=== PATIENT | female | born 1955 | race Caucasian/White ===

== ENCOUNTER 2020-09-14 08:39 | Outpatient (CLI) | payer OTHER, SELFPAY ==
--- NOTE | ~2020-09-14 | MM_ITS ---
EXAMINATION: MM screening [facility] BI w lesvia HISTORY: Screening mammogram TECHNIQUE: Craniocaudal and mediolateral oblique 3-D tomosynthesis images were obtained and synthetic 2-D images were generated. CAD analysis was submitted and interpreted. COMPARISON: 11/22/2018, 11/19/2017, 11/16/2016 bilateral digital screening mammogram examinations BREAST PARENCHYMAL COMPOSITION: There are scattered areas of fibroglandular density. FINDINGS: Scattered bilateral benign calcifications. Stable benign left axillary tail lymph nodes. Th ere is no evidence of suspicious mass, calcification, or architectural distortion to suggest malignan cy in either breast. There has been no suspicious interval change. IMPRESSION: 1. No mammographic evidence of malignancy. 2. Recommend routine screening mammography in one year. BI-RADS Category 2: Benign finding(s). Reviewed, dictated and finalized at location A.
--- NOTE | ~2020-09-14 | DEXA_ITS ---
Bone Density Report Name: Xochitl Rahman Age: 64 Sex: Female Ethnicity: White Date of : 1955 Indication: monitoring treatment; height loss; hysterectomy; Referring Provider: ROSA, DEANN Study: Bone densitometry was performed. Exam Date: September 14, 2020 Accession number: [id number] Bone Density: Region BMD T-score Z-score Classification AP Spine (L1, L2, L3) 1.126 1.0 2.5 Normal Femoral Neck (Left) 0.677 -1.5 -0.1 Osteopenia Total Hip (Left) 1.093 1.2 2.3 Normal Total Hip Bilateral Avg 1.079 1.1 2.2 Normal Femoral Neck (Right) 0.815 -0.3 1.1 Normal Total Hip (Right) 1.064 1.0 2.1 Normal World Health Organization criteria for BMD impression classify patients as: Normal (T-score at or above -1.0), Osteopenia (T-score between -1.0 and -2.5), or Osteoporosis (T-score at or below -2.5). 10-year Fracture Risk: FRAX not reported because: Treated for osteoporosis Previous Exams: Region Exam Age BMD T-score BMD Change BMD Change Date g/cm2 vs Baseline vs Previous AP Spine(L1, L2, L3) 09/14/2020 64 1.126 1.0 0.069(6.6%)# 0.094(9.1%)# 11/19/2017 61 1.032 0.1 -0.025(-2.3%)# -0.015(-1.4%)# 11/12/2014 58 1.047 0.3 -0.010(-0.9%)# -0.010(-0.9%)# 10/09/2011 55 1.057 0.4 Total Hip(Left) 09/14/2020 64 1.093 1.2 0.045(4.3%)# 0.177(19.3%)# 11/19/2017 61 0.917 -0.2 -0.131(-12.5%) -0.160(-14.9%) 11/12/2014 58 1.077 1.1 0.029(2.8%)# 0.029(2.8%)# 10/09/2011 55 1.048 0.9 Total Hip(Right) 09/14/2020 64 1.064 1.0 0.021(2.0%)# 0.092(9.4%)# 11/19/2017 61 0.972 0.2 -0.071(-6.8%)* -0.103(-9.6%)# 11/12/2014 58 1.075 1.1 0.032(3.0%)# 0.032(3.0%)# 10/09/2011 55 1.043 0.8 *Denotes significance at 95% confidence level, LSC for AP Spine = 0.022 g/cm2, LSC for Total Hip = 0.027 g/cm2 Clinical Information Provided by Patient: Is being treated for osteoporosis Has used the following medications: Protelos (i.e. strontium ranelate), Vitamin D, Calcium Has the following medical conditions: Hysterectomy Patient maximum height was 66 Menopause Age: 52 No regular weight bearing exercise Drinks caffeinated beverages Onset of menses at age 13 Number of children 2 Impression: The patient has low bone mass, based on the Left Femoral Neck T-score. No significant bone loss was observed. Discussion: PATIENT UNDER TREATMENT WITH NO SIGNIFICANT BMD LOSS SINCE LAST EXAM. In an
== END 2020-09-14 08:40 | disposition home or self-care (01) ==
LOC: ANHIMG 08:46
PROVIDERS: PCP Family Medicine Adolescent Medicine; Visit Provider Nurse Practitioner
DX: Z12.31 Encounter for screening mammogram for malignant neoplasm of breast (principal); M81.0 Age-related osteoporosis without current pathological fracture; M85.852 Other specified disorders of bone density and structure, left thigh
CPT/HCPCS: 77063; 77067; 77080

== ENCOUNTER 2020-10-07 01:01 | Day surgery (SDC) | payer OTHER, SELFPAY ==
[2020-09-22 08:11] VITALS: BMI 53.7
[2020-10-07 07:04] VITALS: BP 180/94; PULSE 78; RESP 22; TEMP 35.9; O2SAT 96; BMI 52.8
[2020-10-07] MEDS: LACTATED RINGERS 1,000 ML 150 ML IV CONT (07:28)
--- NOTE | 2020-10-07 08:09 | WPDANESEPPF ---
Anes - Initial Pre Proc Eval Procedure: Operation Date: 10/07/20 08:30 Proposed Procedures p Colonoscopy - Trae Mills DO Date/Time: 10/07/20 08:09 Surgeon: Trae Mills DO Pre Op Diagnosis: Hx of colon polyps , neoplasm screening Patient Data Age: 64 Gender: F Height: 1.65 m Weight: 144 kg Last Vital Signs Temp 96.6 F L 10/07/20 07:04 Pulse 78 10/07/20 07:04 Resp 22 H 10/07/20 07:04 BP 180/94 H 10/07/20 07:04 Pulse Ox 96 10/07/20 07:04 Allergies Allergy/AdvReac Type Severity Reaction Status Date / Time aspirin AdvReac Intermediate ITCHEY Verified 09/22/20 08:13 WATERY EYES, SINUS CONGESTION Home Medications Medication Instructions Recorded Confirmed Type Calcium 600 + D(3) 2 tab-cap PO DAILY 09/22/20 09/22/20 History Probiotic 1 dose PO DAILY 09/22/20 09/22/20 History aspirin [Aspirin Low Dose] 81 mg PO DAILY 09/22/20 10/07/20 History cholecalciferol (vitamin D3) 125 mcg PO DAILY 09/22/20 09/22/20 History [Vitamin D3] denosumab [Prolia] 60 mg SUBCUT Q6M 09/22/20 10/07/20 History fiber 4 cap PO DAILY 09/22/20 10/07/20 History meloxicam 15 mg PO DAILY 09/22/20 10/07/20 History fw-vep-dxzbq-calcium carb-K1 1 tablet PO DAILY 09/22/20 09/22/20 History [Women's 50 Plus Daily Formula] vitamin A-vitamin C-vit E-min 1 tablet PO DAILY 09/22/20 09/22/20 History [Ocuvite] Patient hx anesthesia problems: none Family hx anesthesia problems: none PMFSH Past Medical History Medical History (Updated 10/07/20 @ 08:08 by Gerald Pappas MD) Pre-diabetes was on Metformin; now diet controlled Social History Social History Smoking status: Never smoker Alcohol intake: never Substance use: never Substance use type: does not use Living arrangements: with family Spiritual care concerns: No Anes - Eval Final PreProcedure Day of Procedure 10/07/20 08:09 Patient weight: super morbidly obese Heart: regular rate and rhythm Lungs: clear to auscultation Airway: Mallampati scale class II Neurological: alert and oriented Last oral intake: >/= 8 hours ASA classification: III Emergent: no Anesthetic plan: proceed Anesthesia type and monitoring: general GIVS and standard monitoring Informed Consent: The patient's anesthetic plan and its attendant risks and benefits were discussed with the patient/family/POA. Questions were solicited and answers provided to the satisfaction of the patient/family/POA.
--- NOTE | 2020-10-07 08:30 | WPDGICN ---
GI Consult Note Consult date/time: 10/07/20 08:30 HPI: Reason for visit colonoscopy. This very pleasant lady seen in consultation at the request of the primary physician. Impression: Screening and surveillance colonoscopy. The patient has a history adenomatous colon polyps and a family history of colon cancer. Obesity. Osteoporosis. Vitamin-D deficiency. Pre diabetes. Recommendation: Colonoscopy. History: Very pleasant lady's here for screening and surveillance colonoscopy. She has a history of multiple adenomatous colon polyps and family history of colorectal cancer. GI review systems negative. Physical examination: General: very pleasant patient in no acute distress. HEENT: Head was normocephalic sclerae is clear mouth without masses neck was supple. Heart: Rate rhythm regular without S3 or S4. Lungs: CTA. Abdomen: Soft with no guarding or rigidity. Bowel sounds were active. Neurologic: Cranial nerves 2 through 12 intact. No focal defects. No clonus. Musculoskeletal system: Revealed no joint tenderness or swelling no muscle atrophy. Extremities: Reveal no significant edema. Skin: Warm and dry with normal turgor. Mental status: intact. Patient is alert and oriented. Review of Systems Review of Systems: All systems reviewed & are unremarkable except as noted in HPI and below PMFSH Past Medical History Medical History (Updated 10/07/20 @ 08:08 by Gerald Pappas MD) Pre-diabetes was on Metformin; now diet controlled Social History Social History Smoking status: Never smoker Alcohol intake: never Substance use: never Substance use type: does not use Living arrangements: with family Spiritual care concerns: No Meds Home Medications and Allergies Home Medications Medication Instructions Recorded Confirmed Type Calcium 600 + D(3) 2 tab-cap PO DAILY 09/22/20 09/22/20 History Probiotic 1 dose PO DAILY 09/22/20 09/22/20 History aspirin [Aspirin Low Dose] 81 mg PO DAILY 09/22/20 10/07/20 History cholecalciferol (vitamin D3) 125 mcg PO DAILY 09/22/20 09/22/20 History [Vitamin D3] denosumab [Prolia] 60 mg SUBCUT Q6M 09/22/20 10/07/20 History fiber 4 cap PO DAILY 09/22/20 10/07/20 History meloxicam 15 mg PO DAILY 09/22/20 10/07/20 History pi-nff-lunci-calcium carb-K1 1 tablet PO DAILY 09/22/20 09/22/20 History [Women's 50 Plus Daily Formula] vitamin A-vitamin C-vit E-min 1 tablet PO DAILY 09/22/20 09/22/20 History [Ocuvite] Allergies Allergy/AdvReac Type Severity Reaction Status Date / Time aspirin AdvReac Intermediate ITCHEY Verified 09/22/20 08:13 WATERY EYES, SINUS CONGESTION Vital Signs Vital Signs - 24 hr 10/07/20 07:04 Temperature 35.9 C L Pulse Rate 78 Respiratory Rate 22 H Blood Pressure 180/94 H Pulse Oximetry 96
[2020-10-07 08:51] VITALS: BP 126/75; PULSE 61; RESP 25; O2SAT 99
[2020-10-07 09:01] VITALS: BP 133/78; PULSE 59; RESP 25; O2SAT 99
[2020-10-07 09:11] VITALS: BP 138/72; PULSE 57; RESP 19; O2SAT 96
== END 2020-10-07 09:31 | disposition home or self-care (01) ==
PROVIDERS: PCP Family Medicine Adolescent Medicine; Visit Provider Internal Medicine Gastroenterology
PROC: 0DJD8ZZ Inspection of Lower Intestinal Tract, Via Natural or Artificial Opening Endoscopic (ICD-10-PCS; CPT 45378; principal; 2020-10-07 08:30)
DX: Z12.11 Encounter for screening for malignant neoplasm of colon (principal); D17.5 Benign lipomatous neoplasm of intra-abdominal organs; K57.30 Diverticulosis of large intestine without perforation or abscess without bleeding; K62.1 Rectal polyp; Z80.0 Family history of malignant neoplasm of digestive organs; R73.03 Prediabetes; M81.0 Age-related osteoporosis without current pathological fracture; E55.9 Vitamin D deficiency, unspecified; E66.01 Morbid (severe) obesity due to excess calories; Z68.43 Body mass index [BMI] 50.0-59.9, adult; Z79.82 Long term (current) use of aspirin
CPT/HCPCS: 45380; 88304; 88305; J2704; J7120

== ENCOUNTER 2021-11-15 07:45 | Outpatient (CLI) | payer OTHER, SELFPAY ==
--- NOTE | ~2021-11-15 | MM_ITS ---
EXAMINATION: MM screening [facility] BI w lesvia HISTORY: Screening mammogram, family history of breast cancer in her sister. TECHNIQUE: Craniocaudal and mediolateral oblique 3-D tomosynthesis images were obtained and synthetic 2-D images were generated. CAD analysis was submitted and interpreted. COMPARISON: 09/14/2020, 11/22/2018, 11/19/2017 BREAST PARENCHYMAL COMPOSITION: There are scattered areas of fibroglandular density. FINDINGS: Scattered benign-appearing calcifications are present. There is no suspicious mass, calcifi cation, or architectural distortion to suggest malignancy in either breast. There has been no suspici ous interval change. IMPRESSION: 1. No mammographic evidence of malignancy. 2. Recommend routine screening mammography in one year. BI-RADS Category 2: Benign finding(s). Reviewed, dictated and finalized at location A.
== END 2021-11-15 07:46 | disposition home or self-care (01) ==
PROVIDERS: PCP Family Medicine Adolescent Medicine; Visit Provider Nurse Practitioner
DX: Z12.31 Encounter for screening mammogram for malignant neoplasm of breast (principal)
CPT/HCPCS: 77063; 77067

== ENCOUNTER 2023-02-09 08:45 | Outpatient (CLI) | payer MEDICARE, OTHER, SELFPAY ==
--- NOTE | ~2023-02-09 | MM_ITS ---
EXAMINATION: MM screening [facility] BI w lesvia HISTORY: Screening mammogram, family history of breast cancer in her sister. TECHNIQUE: Craniocaudal and mediolateral oblique 3-D tomosynthesis images were obtained and synthetic 2-D images were generated. CAD analysis was submitted and interpreted. COMPARISON: 11/15/2021, 09/14/2020, 11/22/2018 BREAST PARENCHYMAL COMPOSITION: There are scattered areas of fibroglandular density. FINDINGS: Scattered benign-appearing calcifications are present. No suspicious mass, calcification, o r architectural distortion are identified in either breast to suggest malignancy. There has been no s uspicious interval change. IMPRESSION: 1. No mammographic evidence of malignancy. 2. Recommend routine screening mammography in one year. BI-RADS Category 2: Benign finding(s). Reviewed, dictated and finalized at location A.
== END 2023-02-09 08:46 | disposition home or self-care (01) ==
PROVIDERS: PCP Family Medicine Adolescent Medicine; Visit Provider Nurse Practitioner
DX: Z12.31 Encounter for screening mammogram for malignant neoplasm of breast (principal)
CPT/HCPCS: 77063; 77067

== ENCOUNTER 2023-07-20 08:04 | Outpatient (CLI) | payer MEDICARE, OTHER, SELFPAY ==
--- NOTE | ~2023-07-20 | DEXA_ITS ---
Bone Density Report Name: ELROY STATON Age: 67 Sex: Female Ethnicity: White Date of : 1955 Indication: postmenopausal; screening for osteoporosis; height loss; hysterectomy; Referring Provider: ROSA, DEANN Study: Bone densitometry was performed. Exam Date: July 20, 2023 Accession number: [id number] Bone Density: Region BMD T-score Z-score Classification AP Spine(L1-L4) 1.194 1.3 3.1 Normal Femoral Neck (Left) 0.721 -1.1 0.4 Osteopenia Total Hip (Left) 1.056 0.9 2.2 Normal Femoral Neck (Right) 0.814 -0.3 1.2 Normal Total Hip (Right) 1.137 1.6 2.8 Normal Total Hip Mean 1.096 1.3 2.5 Normal World Health Organization criteria for BMD impression classify patients as: Normal (T-score at or above -1.0), Osteopenia (T-score between -1.0 and -2.5), or Osteoporosis (T-score at or below -2.5). 10-year Fracture Risk(1): Major Osteoporotic Fracture 6.8% Hip Fracture 0.5% Reported Risk Factors: [place] (), Neck BMD=0.721, BMI=47.3 Input outside FRAX(R) limits. Adjusted to:Ulahcp=455 kg (1) FRAX(R) Version 3.08. Fracture probability calculated for an untreated patient. Fracture probability may be lower if the patient has received treatment. Previous Exams: Region Exam Age BMD T-score BMD Change BMD Change Date g/cm2 vs Baseline vs Previous AP Spine (L1-L4) 07/20/2023 67 1.194 1.3 0.135 (12.8%)# 0.135 (12.7%)# 11/19/2017 61 1.059 0.1 0.000 (0.0%)# -0.003 (-0.3%) 11/12/2014 58 1.061 0.1 0.003 (0.3%)# 0.003 (0.3%)# 10/09/2011 55 1.058 0.1 Total Hip(Left) 07/20/2023 67 1.056 0.9 0.008 (0.7%)# -0.038 (-3.4%) 09/14/2020 64 1.093 1.2 0.045 (4.3%)# 0.177 (19.3%)# 11/19/2017 61 0.917 -0.2 -0.131 (-12.5% -0.160 (-14.9% 11/12/2014 58 1.077 1.1 0.029 (2.8%)# 0.029 (2.8%)# 10/09/2011 55 1.048 0.9 Total Hip(Right) 07/20/2023 67 1.137 1.6 0.094 (9.0%)# 0.073 (6.9%)* 09/14/2020 64 1.064 1.0 0.021 (2.0%)# 0.092 (9.4%)# 11/19/2017 61 0.972 0.2 -0.071 (-6.8%) -0.103 (-9.6%) 11/12/2014 58 1.075 1.1 0.032 (3.0%)# 0.032 (3.0%)# 10/09/2011 55 1.043 0.8 *Denotes significance at 95% confidence level, LSC for AP Spine = 0.022 g/cm2, LSC for Total Hip = 0.027 g/cm2 # Denotes dissimilar scan types or analysis methods Clinical Information Provided by Patient: Has used the following medications: Vitamin D, Calcium Has the following medical conditions: Hysterectomy Pa
== END 2023-07-20 08:05 | disposition home or self-care (01) ==
LOC: ANHIMG 08:07
PROVIDERS: PCP Family Medicine Adolescent Medicine; Visit Provider Nurse Practitioner
DX: M85.89 Other specified disorders of bone density and structure, multiple sites (principal); Z78.0 Asymptomatic menopausal state
CPT/HCPCS: 77080

== ENCOUNTER 2024-03-12 08:35 | Outpatient (CLI) | payer MEDICARE, OTHER, SELFPAY ==
--- NOTE | ~2024-03-12 | MM_ITS ---
EXAMINATION: MM screening [facility] BI w lesvia HISTORY: Screening TECHNIQUE: Craniocaudal and mediolateral oblique 3-D tomosynthesis images were obtained and synthetic 2-D images were generated. CAD analysis was submitted and interpreted. COMPARISON: Comparison to multiple prior studies sequentially, with oldest reviewed study dated 11/16. BREAST PARENCHYMAL COMPOSITION: Not dense: There are scattered areas of fibroglandular density. FINDINGS: There is no evidence of suspicious mass, calcification, or architectural distortion to sugg est malignancy in either breast. There has been no suspicious interval change. IMPRESSION: 1. No mammographic evidence of malignancy. 2. Recommend routine screening mammography in one year. BI-RADS Category 1: Negative Reviewed, dictated and finalized at location B. CASE MGR
== END 2024-03-12 08:36 | disposition home or self-care (01) ==
PROVIDERS: PCP Family Medicine Adolescent Medicine; Visit Provider Nurse Practitioner
DX: Z12.31 Encounter for screening mammogram for malignant neoplasm of breast (principal)
CPT/HCPCS: 77063; 77067

== ENCOUNTER 2025-03-17 07:34 | Outpatient (CLI) | payer MEDICARE, OTHER, SELFPAY ==
--- NOTE | ~2025-03-17 | MM_ITS ---
EXAMINATION: MM screening [facility] BI w lesvia HISTORY: Screening. TECHNIQUE: Craniocaudal and mediolateral oblique 3-D tomosynthesis images were obtained and synthetic 2-D images were generated. CAD analysis was submitted and interpreted. COMPARISON: 2023, 2022, and 2021. BREAST PARENCHYMAL COMPOSITION: Not Dense: There are scattered areas of fibroglandular FINDINGS: No suspicious masses are seen. There are no suspicious calcifications. No unexplained architectural distortion is seen. There are no skin or nipple abnormalities identified. There is no adenopathy seen on the images submitted. IMPRESSION: No mammographic evidence to suggest malignancy is seen. The patient may return to screening mammography as per ACR guidelines. BI-RADS 1 - Negative. Reviewed, dictated and finalized at location C. IC AFFAIRS DIRECTOR
== END 2025-03-17 07:35 | disposition home or self-care (01) ==
PROVIDERS: PCP Family Medicine Adolescent Medicine; Visit Provider Nurse Practitioner
DX: Z12.31 Encounter for screening mammogram for malignant neoplasm of breast (principal)
CPT/HCPCS: 77063; 77067

== ENCOUNTER 2025-04-03 07:30 | Emergency (ER) | payer MEDICARE, OTHER, SELFPAY ==
[2025-04-03 07:34] VITALS: BP 160/92; PULSE 63; RESP 18; TEMP 36.6; O2SAT 99
--- NOTE | 2025-04-03 07:45 | ED.WOUNDLAC ---
HPI - Wound/Laceration General Chief Complaint: Wound/Laceration Stated Complaint: finger lac Time Seen by Provider: 04/03/25 07:31 History of Present Illness HPI narrative: Patient is a 69-year-old female who presents ER with laceration to the left 2nd digit. Dorsal aspect at the PIP. She was cutting up some primary the bones to make soup when she cut her own finger with a knife. Tetanus not up-to-date. No numbness or tingling. Bleeding now controlled. Has normal extension and flexion of the finger. No numbness or tingling. Related Data Home Medications ?Medication ?Instructions ?Recorded ?Confirmed ?Last Taken ?Type Calcium 600 + D(3) 2 tab-cap PO DAILY 09/22/20 02/17/25 10/04/20 History cholecalciferol (vitamin D3) 125 125 mcg PO DAILY 09/22/20 02/17/25 10/04/20 History mcg (5,000 unit) tablet (Vitamin D3) sempbhho-lca-lixpl ac 400 1 tablet PO DAILY 09/22/20 02/17/25 10/04/20 History mcg-calcium carb 500 mg-vit K1 20 mcg tablet (Women's 50 Plus Daily Formula) vitamin A-vitamin C-vit E-min 1 tablet PO DAILY 11/15/21 02/17/25 Unknown History tablet ursodiol 300 mg capsule 300 mg PO BID 12/12/23 02/17/25 Unknown History vitamin B12 500 mcg-folic acid 400 1 tablet PO DAILY 12/12/23 02/17/25 Unknown History mcg tablet Allergies Allergy/AdvReac Type Severity Reaction Status Date / Time aspirin AdvReac Intermediate ITCHEY Verified 04/03/25 07:38 WATERY EYES, SINUS CONGESTION Review of Systems Constitutional: Constitutional: Reports no additional constitutional complaints Musculoskeletal: Musculoskeletal: Reports no additional musculoskeletal complaints Integumentary/Breasts: Skin/Breast: Reports system reviewed and no additional complaints, except as docu Neurologic: Reports system reviewed and no additional complaints, except as documented PMFSH Past Medical History Medical History (Updated 04/03/25 @ 08:46 by Jose Alejandro Bruner MD) Pre-diabetes was on Metformin; now diet controlled Surgical History Surgical History (Updated 02/17/25 @ 08:01 by Sean Das MD) History of total right knee replacement (11/2024) H/O: hysterectomy [address] Weber Family History Family History Grandparent Acute myocardial infarction Sibling Breast cancer Depression Sibling Breast cancer Depression Hypertension Other Carcinoma of colon Father Hypertension Other Arthritis Colon polyp Social History Social History Smoking status: Never smoker Second hand tobacco smoke exposure: No Alcohol intake: never Substance use: never Substance use type: does not use Lack of Transportation: No Lack of Food: Never True Current Housing: I Have Housing Concerned About Future Housing: No Difficulty Paying Gas/Electric Bills: No Difficulty Paying for Meds: No Currently Unemployed: No Education: High School Diploma/GED Difficulty w/ Childcare or Family Care: No Living arrangements: with family Occupation/Education: retired Gender identity (if verbalized by the patient): Female Spiritual care concerns: No Agree to blood products: Yes Exam Narrative: GENERAL: Well-appearing, well-nourished, and in no acute distress. HEAD: Normocephalic, atraumatic. ENT: Mucous membranes moist. EXTREMITIES: Normal range of motion. Brisk capillary refill. SKIN: Warm, dry, 1.5 cm laceration to the dorsum of the 2nd digit of the left hand without any bony involvement when viewed in a bloodless field. NEURO: No numbness to the affected extremity. Alert and oriented x3. PSYCH: Normal mood and affect. Course Course Emergency Course: Educated on suture/wound care. Discharge home. Vital Signs Vital signs: Vital Signs Temperature 97.9 F 04/03/25 07:34 Pulse Rate 63 04/03/25 07:34 Respiratory Rate 18 04/03/25 07:34 Blood Pressure 160/92 H 04/03/25 07:34 Pulse Oximetry 99 04/03/25 07:34 Oxygen Delivery Room Air 04/03/25 07:34 Temperature 97.9 F 04/03/25 07:34 Pulse Rate 63 04/03/25 07:34 Respiratory Rate 18 04/03/25 07:34 Blood Pressure 160/92 H 04/03/25 07:34 Pulse Oximetry 99 04/03/25 07:34 Oxygen Delivery Room Air 04/03/25 07:34 Procedures Laceration Laceration 1: Date: 04/03/25 Time: 08:45 Site: other (2nd digit) Side (If applicable): left Size (cm): 1.5 Description: linear and flap Depth: simple, single layer Local Anesthetic: lidocaine 1% Amount of anesthesia used (mL): 1.5 Pre-repair: wound explored, irrigated extensively and deep structures intact ====== Skin Level ====== Skin layer closed with: nylon Size (cm): 5-0 Number of sutures: 4 Technique: simple, interrupted ====== Subcutaneous Layer ====== ====== Muscle Layer ====== ====== Tendon Layer ====== Dressing: bandaid with bacitracin MDM Differential Diagnosis Differential Diagnosis: Bone injury, nerve injury, laceration, retained foreign body, tetanus exposure Discharge Plan Discharge Clinical Impression: Finger laceration Patient Disposition: Home Condition: Stable Instructions: Care For Your Stitches (ED), Laceration (ED) Additional Instructions: Remove her sutures on 04/17/2025. Return the ER if your fingers red and hot, the wound is draining pus, or you have additional concerns. Patient Language: Upper Sorbian Prescriptions: No Action vitamin T32-dmard acid 500-400 mcg tablet 1 tablet PO DAILY Rx Instructions: administer with a meal ursodiol 300 mg capsule 300 mg PO BID vitamin A-vitamin C-vit E-min Tablet 1 tablet PO DAILY ibandronate 150 mg tablet 150 mg PO MONTHLY Qty: 3 3RF cholecalciferol (vitamin D3) [Vitamin D3] 125 mcg (5,000 unit) Tablet 125 mcg PO DAILY Women's 50 Plus Daily Formula 400 mcg-500 mg calcium-20 mcg Tablet 1 tablet PO DAILY Calcium 600 + D(3) 2 tab-cap PO DAILY furosemide 20 mg tablet 20 mg PO QAM PRN (Reason: edema) Qty: 90 1RF montelukast 10 mg tablet 10 mg PO DAILY Qty: 90 2RF tramadol 50 mg tablet See Rx Instructions PO QID PRN (Reason: pain) Qty: 40 2RF Rx Instructions: Take 1 or 2 tablets orally four times daily PRN; Jubbonti 60 mg/mL syringe 60 mg subcut [id number] Qty: 1 1RF lisinopril 40 mg tablet 40 mg PO DAILY Qty: 30 5RF celecoxib 200 mg capsule 200 mg PO DAILY Qty: 90 2RF pantoprazole 40 mg tablet,delayed release (DR/EC) 40 mg PO QAM Qty: 90 2RF Follow-up/Referrals: Sean Das MD [Primary Care Provider, Family Practice] - 2 Weeks
[2025-04-03] MEDS: TETANUS,DIPHTHERIA,AC PERTUSSIS ADULT (0.5 ML) BOOSTRIX IM (08:20)
[2025-04-03] MEDS: LIDOCAINE 1% LOCAL INJ 10 ML VIAL INFILTRATE (08:21)
--- OUTSIDE RECORDS SUMMARY | 2025-04-03 08:54 | XMS_ITS | Clinical Summary ---
Author Organization [facility] Address [address], [address] [address] Phone Care Team Providers Care Insurance Verification Rep Name Role Phone Sean Das MD Primary Care Provider + Allergies Active Allergy Reactions Criticality Noted Date Comments Aspirin Other (see Comments) 08/16/2020 Sneezes a lot Medications Calcium Carbonate (CALCIUM 600 PO) Take by mouth. Active Cholecalciferol (VITAMIN D PO) Take by mouth. Active Multiple Vitamins-Mineral s (OCUVITE PO) Take by mouth. Active aspirin EC 81 MG Tablet Delayed Response Take 81 mg by mouth daily. Active meloxicam (MOBIC) 15 MG Tablet Take 15 mg by mouth daily. Active Psyllium (METAMUCIL PO) Take by mouth. Active Active Problems No known active problems Immunizations Immunization Administration Dates Next Due Covid-19, Mrna, Lnp-s, PF, 5 0 mcg/0.25 mL dose (Moderna) 03/23/2021 Covid-19, Mrna, Lnp-s, Pf, 30 Mcg/0.3 Ml Dose (P fizer) 06/07/2020,05/15/2020 Family History Medical History Relation Name Comments Cancer Mother lung Cancer Paternal Aunt colon Cancer Sister breast Relation Name Status Comments Father Mother Paternal Aunt Sister Social History Tobacco Use Types Packs/Day Years Used Date Smoking Tobacco: Former Cigarettes 0 Q uit: 09/21/1971 Smokeless Tobacco: Never Tobacco Cessation:Counseling Given: No Comments:one cigarette a day for a few years Alcohol Use Standard Drinks/Week Comments No 0 (1 standard drink = 0.6 oz pur e alcohol) Sexually Active Control Partners Comments Yes Comments No Sex and Gender Information Value Date Recorded Sex Assigned at Not on file Legal Sex Female 11:17 PM CDT Gender Identity Not on file Sexual Orientation Not on file Occupation Industry Job Start Date Job End Date Retired [employer] Not on file Not on file Not on file Last Filed Vital Signs Vital Sign Reading Time Taken Comments Blood Pressure 148/76 08/16/2020 9:03 AM CDT Pulse 70 08/16/2020 9:03 AM CDT Temperature 36.7 C (98 F) 08/16/2020 9:03 AM CDT Respiratory Rate 20 08/16/2020 9:03 AM CDT Oxygen Saturation 98% 08/16/2020 9:03 AM CDT Inhaled Oxygen Concentration - - Weight 146.5 kg (323 lb) 08/16/2020 9:03 AM CDT Height 165.1 cm (5' 5) 08/16/2020 9:03 AM CDT Body Mass Index 53.75 08/16/2020 9:03 AM CDT Plan of Treatment Health Maintenance Due Date Last Done Comments Hepatitis C Virus (HCV) Screening 1955 TdaP Immunization 1955 Cologuard 2002 Immunochemical Fecal Occult Blood 2002 Pneumococcal Immunization (5 0+ years) (1 of 1 - PCV) 12/23/2007 Zoster Immunization (1 of 2) 12/23/2007 Influenza Immunization (#1) 2024 SARS-COV-2 Immunization ( season) 2024 03/23/2021, 06/07/2020, 05/15/2020 Colonoscopy 10/07/2025 10/07/2020, 09/25/2017 Colorectal Cancer Screening 10/07/2025 Respiratory Syncytial Virus (RSV) Immunization (Adult) (1 - 1-dose 75+ series) 2032 Hepatitis B Immunization Aged Out No longer eligible based on patient's age to complete this topic Human Papillomavirus (HPV) Immunization Aged Out No longer eligible b ased on patient's age to complete this topic Meningococcal Immunization (ACWY) Aged Out No longer eligible b ased on patient's age to complete this topic Rotavirus Immunization Aged Out No lo nger eligible based on patient's age to complete this topic Procedures Procedure Name Priority Date/Time Associated Diagnosis Comments COLONOSCOPY Routine 10/07/2020 from Last 3 Months or Most Recently Relevant to Health Maintenance Results * HM COLONOSCOPY (10/07/2020) Trae Mills DO PROCEDURE/MINOR SURGICAL ORDERA BLES Final Result from Last 3 Months or Most Recently Relevant to Health Maintenance [facility] [address] [place] [id number] Care Teams Insurance Verification Rep Relationship Specialty Start Date End Date Sean Das MD PCP - General Family Medicine 08/01/17
--- OUTSIDE RECORDS SUMMARY | 2025-04-03 08:54 | XMS_ITS | Clinical Summary ---
Author Organization [facility] Address [address] [place] [id number] Care Team Providers Care Supervisor [employer] Name Role Phone Sean Das MD Primary Care Prov ider Kris Gamble DPT Unavailable Unavailable Allergies Active Allergy Reactions Criticality Noted Date Comments Aspirin Cough,Eye irritation,Sneezing Low 02/08/2012 Only with high doses Nsaids (Non-Steroidal Anti-Inflammatory Drug) Other (See comments) 11/03/2024 Hx bariatric surgery Medications vit C/vit E/lutein/min/ome ga-3 (OCUVITE ORAL)Indications :eye supplement Take 1 tablet by mouth every evening Active cholecalciferol (VITAMIN D-3) 5,000 unit tabletIndication s:Vitamin D Deficiency Take 1 tablet (5,000 Units total) by mouth every evening Active cyanocobalamin (Vitamin B-12) 500 mcg tablet Take 1 tablet (500 mcg total) by mouth daily Start post Surgery 90 tablet 3 4 Active Additional Information Patient not taking.Reported on 01/07/2025 celecoxib (CeleBREX) 200 mg capsuleIndicatio ns:Osteoarthriti s Take 1 capsule (200 mg total) 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 4 Active calcium citrate-vitamin D3 200 mg-6.25 mcg (250 unit) tablet Take 2 tablets by mouth 3 (three) times a day Start post-surgery 540 tablet 3 5 08/06/19 Active multivitamin with minerals tabletIndication s:Vitamin Deficiency Prevention Take 2 tablets by mouth daily 60 tablet 11 5 10/17/19 Active Additional Information Patient taking differently: 1 tabletoral2 times daily, Indications: Mineral Deficiency Prevention, Vitamin Deficiency Prevention, Informant: Self, Reported on 01/07/2025 lisinopriL (PRINIVIL,ZESTRI L) 40 mg tabletIndication s:hypertension Take 1 tablet (40 mg total) 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 5 Active denosumab (Prolia) 60 mg/mL syringeIndicatio ns:postmenopausa l osteoporosis and high fracture risk Inject 1 mL (60 mg total) under the skin every 6 (six) months LAST DOSE: 07/2024 Active ferrous sulfate 325 mg (65 mg of elemental iron) tabletIndication s:Iron Deficiency Anemia Take 1 tablet (65 mg of elemental iron total) by mouth every evening Active acetaminophen (TYLENOL) 500 mg tablet Take 2 tablets (1,000 mg total) by mouth every 8 (eight) hours 90 tablet 5 Active traMADoL (ULTRAM) 50 mg tabletIndication s:Postoperative pain Take 1 tablet (50 mg total) by mouth every 8 (eight) hours as needed for pain 42 tablet 5 Active Active Problems Problem Noted Date Diagnosed Date Primary osteoarthritis of left knee 01/07/2025 Arthritis of right knee 11/27/2024 Primary osteoarthritis of right knee 08/01/2024 Status post bariatric surgery 12/12/2023 Intra abdominal hemorrhage 10/30/2023 Primary hypertension 10/29/2023 No diagnosis on [place] I 05/04/2023 Osteoarthritis of multiple joints 05/04/2023 Resolved Problems Problem Noted Date Diagnosed Date Resolved Date Morbid (severe) obesity due to excess calories 10/29/2023 12/12/2023 Morbid obesity 05/04/2023 11/04/2024 BMI 50.0-59.9, adult 04/16/2023 024 Encounters Date Type Department Care Team Description 01/07/2025 10:20 AM CDT Office Visit [facility] Medicine Orthopaedic Surgery [address] [place] [address] Medical Office Building [address] [address] Maximus Nevarez MD S/P total knee arthroplasty, right (Primary Dx); Surgical follow-up care; Primary osteoarthritis of left knee; Chronic pain of left knee 01/07/2025 9:50 AM CDT - 01/07/2025 11:59 PM CDT Hospital Encounter [facility] [address] [facility] [address] [place] [address] S/P total knee arthroplasty, right Discharge Disposition: Discharge to home or self care from Last 3 Months Surgical History Surgery Date Site/Laterality Comments HYSTERECTOMY 2009 TONSILLECTOMY BARIATRIC SURGERY 10/29/2023 Medical History Medical History Date Comments Arthritis 8 years Joint pain 8 years Morbid obesity (HCC) 20 years Osteoporosis 8 years Family History Medical History Relation Name Comments Arthritis Father Nilsa Garcia Colon cancer Father's Sister Carmen Heredia Cancer Mother Lung cancer Breast cancer Sister 1 [place] Depression Sister 1 [place] Mental illness Sister 1 [place] Breast cancer Sister 2 Nicki Saad Hypertension Sister 2 Nicki Saad Obesity Sister 2 Nicki Saad Depression Sister 3 September Barros Mental illness Sister 3 September Barros Obesity Sister 3 September Barros Anesthesia problems Neg Hx Relation Name Status Comments Father Nilsa Garcia Father's Sister Carmen Heredai Mother Lung cancer Sister 1 [place] Sister 2 Nicki Saad Sister 3 September Barros Social History Tobacco Use Types Packs/Day Years Used Date Smoking Tobacco: Never Passive Smoke Exposure: Never Smokeless Tobacco: Never Tobacco Cessation:Counseling Given: Not Answered AUDIT-C Answer Date Recorded Q1: How often do you have a drink containing alc ohol? Never 11/27/2024 Average Number of Drinks Not on file 025 Frequency of Binge Drinking Not on file 11/08 Personal Safety Answer Date Recorded Have you ever been in or are you currently in a harmful physical or emotional relationship or is someone making you feel afraid or unsafe? Denies 11/27/2024 Comments No Sex and Gender Information Value Date Recorded Sex Assigned at Not on file Legal Sex Female 6:55 PM CIRCULAR SAW OPERATOR Gender Identity Female 03/15/2023 10:23 AM CIRCULAR SAW OPERATOR Sexual Orientation Straight 07/24/2023 2: 01 PM CDT Last Filed Vital Signs Vital Sign Reading Time Taken Comments Blood Pressure 138/77 11/28/2024 8:32 AM CDT Pulse 63 11/28/2024 8:32 AM CDT Temperature 36.7 C (98.1 F) 11/28/2024 8:32 AM CDT Respiratory Rate 14 11/28/2024 8:32 AM CDT Oxygen Saturation 99% 11/28/2024 8:32 AM CDT Inhaled Oxygen Concentration - - Weight 98.1 kg (216 lb 3.2 oz) 11/27/2024 10:17 AM CDT Height 162.6 cm (5' 4) 11/27/2024 10:17 AM CDT Body Mass Index 37.11 11/27/2024 10:17 AM CDT Plan of Treatment Upcoming Encounters Date Type Department Care Team (Latest Contact Info) Description 06/12/2025 1:30 PM CIRCULAR SAW OPERATOR Hospital Encounter [facility] Operating Room [address] K[place]ST[place]INMARIELY[place] [id number] Maximus Nevarez MD [address] [facility] [address] [place] [address] 06/12/2025 1:30 PM CIRCULAR SAW OPERATOR - 06/12/2025 3:25 PM CIRCULAR SAW OPERATOR Surgery [facility] Operating Room [address] A[address] Castillo ADOLFODAYLIN K[place]STANTINMARIELYED [address] Maximus Nevarez MD [address] [facility] [address] [place] [address] ARTHROPLASTY TOTAL KNEE - DEPUY Scheduled Procedures Name Priority Associated Diagnoses Date/Ti me ARTHROPLASTY TOTAL KNEE - DEPUY Primary osteoarthritis of left knee 06/12/2025 1:30 PM CIRCULAR SAW OPERATOR Health Maintenance Due Date Last Done Comments Breast Cancer Screening-Mammogram 1955 Colon Cancer Screening-Colonoscopy 1955 Depression Screening 1955 Hepatitis C Screening 1955 Osteoporosis Screening-Bone Density Scan 1955 DTaP/Tdap/Td Vaccine (1 - Tdap) 1968 Hepatitis B Screening 12/23/1975 Pneumococcal vaccine 65+ (1 of 1 - PCV) 12/23/2007 Zoster Vaccine (1 of 2) 12/23/2007 Covid-19 Vaccine (3 - Pfizer risk series) 04/20/2021 03/23/2021, 06/07/2020, 05/15/2020 Well Visit 65+ 2022 Influenza Vaccine (#1) 2024 , 02/16/2023, 01/31/2022 Fall Risk Assessment 11/28/2025 11/28/2024 Goals Goal Patient Goal Type Associated Problems Recent Progress Patient-Stated? Author Autogenerat ed Goal Care Plan Autogenerated Problem No Mere [place], RN Autogenerat ed Goal Care Plan Autogenerated Problem No Lesli Graves RN Medical Devices Implanted Type Area Product Expert Device Identifier Shelf Expiration Date Model / Serial / Lot [employer] Biological Bariatric Peristrip Non Crosslinked Bovine Pericardium For Endo Yolanda Thin [id number] - [id number] Implanted:Qty: 1 on 10/29/2023 at [facility] N/A: Abdomen [employer] 08/13/2025 [id number] / / [id number] [employer] Bariatric Peristrip Non Crosslinked Bovine Pericardium For Endo Yolanda Thin [id number] - [id number] Implanted:Qty: 1 on 10/29/2023 at [facility] N/A: Abdomen [employer] 08/13/2025 [id number] / / [id number] [employer] Component Femoral Knee Porous Cruciate Retaining Right Attune Size 7 [id number] - [id number] Implanted:Qty: 1 on 11/27/2024 at [facility] Right: Knee [employer] 09/06/2034 [id number] / / [id number] [employer] Attune Fb Tib Base Sz 7 Por [id number] - [id number] Implanted:Qty: 1 on 11/27/2024 at [facility] Right: Knee [employer] 12/07/2032 [id number] / / [id number] [employer] Insert Tibial Knee Fixed Rm Posterior Stabilized Attune 5mm Size 7 Polyethylene [id number] - [id number] Implanted:Qty: 1 on 11/27/2024 at [facility] Right: Knee [employer] 10/06/2032 [id number] / / [id number] Procedures Procedure Name Priority Date/Time Associated Diagnosis Comments XR KNEE RIGHT 4 OR MORE VIEWS Schedule Routine, Read Routine (OP Routine) 01/07/2025 10:06 AM CDT S/P total knee arthroplasty, right from Last 3 Months Results * XR Knee Right 4 or More Views (01/07/2025 10:06 AM CDT) Anatomical Region Laterality Modality Lower Extremities, Knee Right Computed Radiography 01/07/2025 10:0 9 AM CDT Impressions 01/07/2025 10:09 AM CDT 2 component right knee arthroplasty in unchanged, near-anatomic position. Electronically signed by: Jeremias Muro M.D. Narrative 01/07/2025 10:09 AM CDT EXAMINATION: XR KNEE RIGHT 4 OR MORE VIEWS HISTORY: Right knee arthroplasty follow-up COMPARISON: 11/27/2024 FINDINGS: Right 2 component knee arthroplasty and lateral facetectomy in unchanged, near-anatomic position. Neutral mechanical axis of the right lower cavity. No periprosthetic fracture or component migration. Soft tissue swelling as knee effusion present. Procedure Note Jeremias Muro MD - 01/07/2025 EXAMINATION: XR KNEE RIGHT 4 OR MORE VIEWS HISTORY: Right knee arthroplasty follow-up COMPARISON: 11/27/2024 FINDINGS: Right 2 component knee arthroplasty and lateral facetectomy in unchanged, near-anatomic position. Neutral mechanical axis of the right lower cavity. No periprosthetic fracture or component migration. Soft tissue swelling as knee effusion present. IMPRESSION: 2 component right knee arthroplasty in unchanged, near-anatomic position. Electronically signed by: Jeremias Muro M.D. Maximus Nevarez MD IMG XR PROCEDURES Final R esult from Last 3 Months Additional Health Concerns Active Problems Noted Date Diagnosed Date Autogenerated Problem 11/28/2024 Autogenerated Problem 01/07/2025 Insurance [facility] MEDIC[facility] ADVANTAGE [facility] Address: [facility] [address] [place] [address] [facility] MEDICARE ADVANTAGE Advance Directives For more information, please contact: [phone] * Full Code (Latest Code Status on File) Date Activated Date Inactivated Comments 11/27/2024 3:26 PM 11/28/2024 2:46 PM * Full Code Date Activated Date Inactivated Comments 10/29/2023 12:05 PM 11/01/2023 4:43 PM Care Teams Supervisor Reactor Fueling Relationship Specialty Start Date End Date Sean Das MD PCP - General Family Medicine 02/19/23 Kris Gamble, CELE[employer] [address] [place] [address] Physical Therapist Physical Therapy 05/11/23
== END 2025-04-03 09:14 | disposition home or self-care (01) ==
LOC: ANHED 08:52
PROVIDERS: Emergency Provider Emergency Medicine; PCP Family Medicine Adolescent Medicine
DX: S61.211A Laceration without foreign body of left index finger without damage to nail, initial encounter (principal); Z23 Encounter for immunization; R73.03 Prediabetes; Z90.710 Acquired absence of both cervix and uterus; W26.0XXA Contact with knife, initial encounter
CPT/HCPCS: 12001; 90471; 90715; 99282; J2003